=== PATIENT | female | born 1940 | race Caucasian/White ===

== ENCOUNTER 2017-01-08 09:07 | Outpatient (CLI) | payer MEDICARE ==
[2012-11-12 07:33] VITALS: BMI 66.0
== END 2017-01-08 09:22 ==
LOC: D.MAMMO 09:07
DX: Z12.31 Encounter for screening mammogram for malignant neoplasm of breast (principal)

== ENCOUNTER → 2017-06-04 13:54 | Outpatient (CLI) | payer MEDICARE ==
[2012-11-12 07:33] VITALS: BMI 66.0
== END | disposition home or self-care (01) ==
LOC: D.MAMMO 10:30
DX: R92.8 Other abnormal and inconclusive findings on diagnostic imaging of breast (principal)

== ENCOUNTER → 2018-11-28 16:41 | Outpatient (CLI) | payer MEDICARE, MEDICAID ==
[2012-11-12 07:33] VITALS: BMI 66.0
== END | disposition home or self-care (01) ==
LOC: D.MAMMO 11:15
PROVIDERS: ATTEND Nurse Practitioner Family
DX: Z12.31 Encounter for screening mammogram for malignant neoplasm of breast (principal)

== ENCOUNTER 2021-01-17 14:25 | Outpatient (CLI) | payer MEDICARE, MEDICAID ==
[2012-11-12 07:33] VITALS: BMI 66.0
== END 2021-01-17 23:59 | disposition home or self-care (01) ==
LOC: D.MAMMO 14:25
PROVIDERS: ATTEND Nurse Practitioner Family
DX: Z12.31 Encounter for screening mammogram for malignant neoplasm of breast (principal)